=== PATIENT | male | born 1960 | race Caucasian/White ===

== ENCOUNTER 2016-05-22 16:15 | Emergency (ER) | payer SELFPAY ==
[2016-05-22] MEDS ORDERED: LIDOCAINE 1%-EPI 1:100000 20 ML MDV ONE (16:32)
== END 2016-05-22 17:35 | disposition home or self-care (01) ==
DX: S61.212A Laceration without foreign body of right middle finger without damage to nail, initial encounter (principal); X58.XXXA Exposure to other specified factors, initial encounter

== ENCOUNTER 2016-07-10 07:43 | Outpatient (CLI) | payer OTHER ==
[2016-07-10] MEDS ORDERED: GADOBUTROL 10 MMOL/10 ML VIAL IVP ONE (08:24)
== END 2016-07-10 07:44 | disposition home or self-care (01) ==
DX: M51.16 Intervertebral disc disorders with radiculopathy, lumbar region (principal); M51.17 Intervertebral disc disorders with radiculopathy, lumbosacral region; M47.896 Other spondylosis, lumbar region; G12.9 Spinal muscular atrophy, unspecified
CPT/HCPCS: 72158; A9585

== ENCOUNTER 2018-11-24 13:02 | Outpatient (CLI) | payer OTHER ==
--- NOTE | 2018-11-25 13:31 | MRI Report ---
Reason: RADICULOPATHY, LUMBAR REGION, UNSPECIFIED THORACIC Procedure Date: 11/24/2018 Accession Number: [id number] / [id number] Procedure: MRI - Lumbar Spine W/O CPT Code: FULL RESULT: EXAM: MRI LUMBAR SPINE WITHOUT CONTRAST EXAM DATE: 11/24/2018 02:16 PM. CLINICAL HISTORY: RADICULOPATHY, LUMBAR REGION, UNSPECIFIED THORACIC. COMPARISON: 07/10/2016 lumbar spine MRI. TECHNIQUE: Multiplanar, multisequence T1-weighted and fluid-sensitive sequences of the lumbar spine from T12 to S1 without contrast. Other: None. FINDINGS: Spinal Canal: The conus terminates at L1. The conus medullaris and cauda equina are unremarkable. Alignment: Anterolisthesis of L4 and L5 measures 5 mm. Anterolisthesis of L5 on S1 measures 4 mm. No scoliosis. Bone Marrow: Five byu-cop-sllqeae lumbar vertebral bodies are assumed. 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 No acute fracture. Modic type I endplate degenerative changes are present at L5-S1 and to a lesser degree at L4-L5. Disk Levels/Facets: T12-L1: Unremarkable. L1-L2: Unremarkable. L2-L3: Unremarkable. L3-L4: No disk bulge or protrusion. Mild facet arthropathy. No central canal or foraminal stenosis. L4-L5: L4 spondylolysis with grade 1 anterolisthesis, uncovering the disk, and a superimposed shallow broad-based disk bulge, resulting in moderate to severe bilateral foraminal stenosis, left greater than right, unchanged from the prior examination. L5-S1: L5 spondylolysis with grade 1 anterolisthesis, uncovering of the disk, and a superimposed broad-based disk bulge that results in severe right and moderate left foraminal stenosis, with compression of the exiting right L5 nerve root. No central canal or lateral recess stenosis. Musculature: Normal. No edema or fatty atrophy. Other: The partially visualized retroperitoneum is unremarkable. IMPRESSION: 1. L5 spondylolysis with grade 1 anterolisthesis and a superimposed broad-based disk bulge is unchanged, causing severe right and moderate left foraminal stenosis with likely compression of the exiting right L5 nerve root. 2. L4 spondylolysis with grade 1 anterolisthesis and a broad-based disk bulge is unchanged, causing moderate-severe bilateral foraminal stenosis. Comment: The following findings are so common in adults without low back pain that while we report their presence, they must be interpreted with caution and in the context of the clinical situation. (Reference Tomekak et al, Spine 2001) Prevalence of findings in patients without low back pain: Disk degeneration (any evidence): 92% Disk desiccation/T2 signal loss: 83% Disk height loss: 56% Disk bulge: 64% Disk protrusion: 32% Annular tear/high intensity zone: 38% RADIA
== END 2018-11-24 13:03 | disposition home or self-care (01) ==
LOC: DI 13:02
PROVIDERS: ATTEND Family Medicine
DX: M43.06 Spondylolysis, lumbar region (principal); M47.816 Spondylosis without myelopathy or radiculopathy, lumbar region; M43.07 Spondylolysis, lumbosacral region; M51.36 Other intervertebral disc degeneration, lumbar region; M48.061 Spinal stenosis, lumbar region without neurogenic claudication; M51.37 Other intervertebral disc degeneration, lumbosacral region; M48.07 Spinal stenosis, lumbosacral region
CPT/HCPCS: 72148

== ENCOUNTER 2022-06-29 07:37 | Outpatient (CLI) | payer OTHER ==
[~2022-06-29 07:37] MED LIST: GADOBUTROL 15 MMOL/15 ML VIAL ONE
[2022-06-29] MEDS ORDERED: GADOBUTROL 15 MMOL/15 ML VIAL IVP ONE (09:05)
--- NOTE | 2022-06-29 10:51 | MRI Report ---
PROCEDURE: WRIST W/WO - RT INDICATIONS: VOLAR MASSES CONTRAST: GADAVIST 12.2 ML TECHNIQUE: Noncontrast coronal T1 spin echo with fat saturation, proton density fast spin echo and T2 fast spin echo with fat saturation; coronal 3-D gradient echo, axial T1 spin echo and T2 fast spin echo with fa t saturation, sagittal T1 spin echo through the wrist. Post-contrast axial, coronal, and sagittal T1 spin echo with fat saturation through the wrist. COMPARISON: None. FINDINGS: Image quality: Images are moderately degraded by patient motion on multiple pulse sequences despite repeat sequences being acquired. Diagnostic information is obtained. Bones and cartilage: Cystic changes and osseous edema are seen at the lunate, which are more promine nt volarly. Mild nonspecific osseous edema in the adjacent proximal scaphoid. Degenerative cystic james nges are seen in the capitate. The carpal bones are normally aligned. Carpal ligaments: Intermediate signal intensity within the scapholunate ligament may be secondary to mild degeneration. No full-thickness tear is seen. Lunotriquetral ligament is intact. On sagittal radha ges, the pisohamate ligament appears intact. Triangular fibrocartilage complex: The triangular fibrocartilage appears intact. Tendons and soft tissues: Nonspecific intermediate signal intensity material measuring approximately 2.5 x 1.2 x 1.9 cm is seen along the volar aspect of the wrist adjacent to the lunate deep to the car pal tunnel. No significant enhancement is seen in this location. A small fluid collection is seen dis corinne to this lesion measuring approximately 1.1 x 0.6 x 1.2 cm. Postsurgical changes are seen from dharmesh or carpal tunnel release surgery. The median nerve appears chronically thickened. The ulnar nerve diane ears normal within Guyon's canal. There is mild tendinosis of the extensor pollicis brevis and abduct or pollicis longus tendons within the first extensor compartment. The remaining extensor tendon james rtments demonstrate normal morphology, without pathologic tendon sheath fluid. IMPRESSION: 1.Postsurgical changes from carpal tunnel release surgery. 2.Intermediate signal intensity 2.5 cm lesion along the volar aspect of the wrist between the lunate and the carpal tunnel without significant postcontrast enhancement. Differential considerations prima rily include postsurgical scarring versus focal tenosynovitis or PVNS. Other benign and malignant sof t tissue masses are not entirely excluded. 3.Nonspecific cystic changes and edema within the lunate and the proximal pole of the scaphoid, which may be reactive or degenerative versus secondary to osseous contusions. 4.Mild degeneration of the scapholunate ligament without definite tearing. 5.Mild tendinosis of the first extensor compartment tendons. Reviewed by: Beto Gallegos MD on 06/29/2022 10:50 AM PDT Approved by: Beto Gallegos MD on 06/29/2022 10:50 AM PDT Station ID: [id number]
== END 2022-06-29 07:38 | disposition home or self-care (01) ==
LOC: DI 07:37
PROVIDERS: ATTEND Orthopaedic Surgery
DX: M67.431 Ganglion, right wrist (principal); M24.231 Disorder of ligament, right wrist; M67.833 Other specified disorders of tendon, right wrist
CPT/HCPCS: 73223; A9585